=== PATIENT | male | born 1960 | race Caucasian/White ===

== ENCOUNTER 2019-10-24 17:55 | Emergency (ER) | payer OTHER ==
[~2019-10-24] VITALS: Ht 172.7 cm; Wt 115.4 kg
--- NOTE | 2019-10-24 18:26 | PHYS DOC ---
Past History Past Medical History: Other (liver CA) Smoking: Cigarettes General Adult EDM: Chief Complaint: GI PROBLEM HPI: HPI: 59M with liver CA (managed at [facility]), p/w 5 days of abdominal pain, dull, diffuse. No N/V/D. No prior abd surgeries. No other reported PMH. Patient an overall poor historian re: his medical history. Review of Systems: Review of Systems: Gen: No fever, chills. Eyes: No blurred vision, diplopia. ENT: No nasal congestion, sore throat. CV: No CP, cough. Resp. No SOB, cough. GI: No diarrhea, N/V. Reports abdominal pain. : No dysuria, hematuria. Neuro: No VILLAVICENCOI, dizziness, weakness. MSK: No myalgia, arthralgia, back pain. Skin: No acute rash or lesion. Heart Score: Risk Factors: Risk Factors: DM, Current or recent (<one month) smoker, HTN, HLP, family history of CAD, obesity. Risk Scores: Score 0 - 3: 2.5% MACE over next 6 weeks - Discharge Home Score 4 - 6: 20.3% MACE over next 6 weeks - Admit for Clinical Observation Score 7 - 10: 72.7% MACE over next 6 weeks - Early Invasive Strategies Current Medications: Current Meds: Current Medications Medications (Trade) Dose Ordered Sig/Venkatesh Start Time Stop Time Status Last Admin Dose Admin Morphine Sulfate (Morphine 4mg Syringe) 4 mg PRN Q15MIN PRN 10/24/19 18:30 10/25/19 18:29 Allergies: Allergies: Allergies Coded Allergies Type Severity Reaction Last Updated Verified aspirin Allergy Unknown 10/24/19 Yes Physical Exam: PE: Gen: NAD. Head: NC/AT. Eyes: Mild bilateral scleral icterus. No conjunctival injection. ENT: MMM. Posterior OP clear. Neck: Supple. NT. No JVD. CV: RRR. Peripheral pulses intact. Resp: Faint bibasilar rales. Abd: Soft. Mild to moderate distention. Minimal nonfocal tenderness without peritoneal signs. No flank percussion tenderness. MSK: No peripheral cyanosis. No edema. Neuro: Awake and alert. Skin. Warm. Dry. Psych: Appropriate mood & affect. EKG: EKG: EKG at 1847. NSR. HR 80. Nml intervals. No STEMI. Interp by me. Radiology/Procedures: Radiology/Procedures: PROCEDURE: CT ABD PELV W/ IV CONTRST ONLY CT abdomen and pelvis with contrast PQRS statement: CT scans at this facility use dose reduction including either automated exposure control, iterative reconstructions, and /or weight based radiation dosing via mA and kV modification when appropriate to reduce radiation dose to as low as reasonably achievable. Contrast: 75 mL Omnipaque 300 intravenous contrast. HISTORY: Abdominal pain, bloating, liver cancer, history of radiation therapy. Abdomen findings: Mild dependent right pleural effusion and dependent right lower lobe atelectasis. Liver cirrhosis. Numerous hypodense lesions of the liver, multifocal hepatocellular carcinoma is a possibility. Expansile portal vein thrombus at the left and main portal veins raising the possibility of tumor thrombus with possible enhancement within the thrombus. Distended gallbladder and wall calcifications diameter 5.5 cm. There is mild abdominal ascites. Prostatomegaly length of 15 cm. Kidneys, adrenals, pancreas unremarkable. Gastroesophageal varices. No bowel obstruction. Appendix is not visualized could be obscured by the ascites or surgically absent. 2 cm umbilical hernia containing fluid. Lumbar disc disease with spinal canal stenoses, L5 spondylolysis and grade 1 anterolisthesis with spinal canal and neural foraminal stenoses. Pelvis findings: Mild pelvic ascites. Bladder, prostate, rectum and bones are unremarkable. IMPRESSION: 1. Liver cirrhosis with multifocal hypodense lesions not typical of cysts, concerning for multifocal hepatocellular carcinoma. 2. Expansile nonocclusive portal vein thrombus with possible areas of enhancement suspicious for tumor thrombus. 3. Mild ascites. Mild right pleural effusion. 4. Portal hypertension with mild splenomegaly, and gastroesophageal varices. 5. Gallstones and distended gallbladder. 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 Electronically signed by: Jm Bowen MD (10/24/2019 7:38 PM) [facility] Course & Med Decision Making: Course & Med Decision Making Pertinent Labs and Imaging studies reviewed. (See chart for details) In summary, 59M with liver CA p/w abdominal pain. No other GI/ Sx. Benign exam, mild abd distension. Labs with transaminitis as expected, with bili 7. CTAP with known liver cirrhosis/CA, nonocclusive portal vein thrombus. Received morphine with efficacy. Spoke with [facility] ED re: prior records. The PVT is a new finding, with worsening of hyperbili (previously 3 in 08/2019). Call out to transfer center. No hepatology coverage here at [facility]. MELD score 23. Accepted for transfer to [facility] at [address] Costello. Remains stable for transfer. Dragon Disclaimer: Dragon Disclaimer: This electronic medical record was generated, in whole or in part, using a voice recognition dictation system. Departure Departure: Impression: Primary Impression: Liver cancer Additional Impressions: Hyperbilirubinemia Transaminitis Portal vein thrombosis Disposition: 05 TRANSFER OTHER ([facility] - Dr. Felice Costello) Condition: STABLE Referrals: PCP,JANELL (PCP) SWAPNA CLAUDIO DO October 24, 2019 18:26
[2019-10-24] MEDS ORDERED: IOHEXOL 300 MG/ML 75 ML VIAL. IV ONE (18:30)
[2019-10-24] MEDS: MORPHINE SULFATE 4 MG/ML DISP.SYRIN. IV/SQ PRN ×2 (18:41→23:06)
[2019-10-24 19:13] LABS: BASO % 1 % (0-3); EOS # 0.1 x10^3/uL (0.0-0.7); EOS % 1 % (0-3); HEMATOCRIT 41.3 % (39.0-53.0); HEMOGLOBIN 14.2 g/dL (13.0-17.5); LYMPH # 0.8 x10^3/uL (1.0-4.8); LYMPH % 10 % (24-48); MEAN CORPUSCULAR HEMOGLOBIN 34 pg (25-35); MEAN CORPUSCULAR HGB CONC 34 g/dL (31-37); MEAN CORPUSCULAR VOLUME 100 fL (79-100); MONO # 0.7 x10^3/uL (0.0-1.1); MONO % 9 % (0-9); NEUT # 6.3 x10^3uL (1.8-7.7); NEUT % 80 % (31-73); PLATELET COUNT 104 x10^3/uL (140-400); RED BLOOD COUNT 4.12 x10^6/uL (4.30-5.70); WHITE BLOOD COUNT 7.9 x10^3/uL (4.0-11.0)
[2019-10-24 19:17] LABS: CALCIUM 8.9 mg/dL (8.5-10.1); CREATININE 0.8 mg/dL (0.7-1.3); GFR 98.9
[2019-10-24 19:18] LABS: POTASSIUM 4.2 mmol/L (3.5-5.1)
[2019-10-24 19:23] LABS: ALBUMIN 1.8 g/dL (3.4-5.0); ALBUMIN/GLOBULIN RATIO 0.3 (1.0-1.7); TOTAL PROTEIN 8.1 g/dL (6.4-8.2)
--- NOTE | 2019-10-24 19:34 | RAD ---
AP chest x-ray HISTORY: Shortness of breath. FINDINGS: Heart size normal. Mediastinal silhouette is normal. No pneumothorax. Mild right pleural effusion along the lateral diaphragm. No pulmonary opacities. Bones are unremarkable. IMPRESSION: Mild right pleural effusion. Electronically signed by: Jm Bowen MD (10/24/2019 7:31 PM) [facility]
--- NOTE | 2019-10-24 19:41 | RAD ---
CT abdomen and pelvis with contrast PQRS statement: CT scans at this facility use dose reduction including either automated exposure control, iterative reconstructions, and /or weight based radiation dosing via mA and kV modification when appropriate to reduce radiation dose to as low as reasonably achievable. Contrast: 75 mL Omnipaque 300 intravenous contrast. HISTORY: Abdominal pain, bloating, liver cancer, history of radiation therapy. Abdomen findings: Mild dependent right pleural effusion and dependent right lower lobe atelectasis. Liver cirrhosis. Numerous hypodense lesions of the liver, multifocal hepatocellular carcinoma is a possibility. Expansile portal vein thrombus at the left and main portal veins raising the possibility of tumor thrombus with possible enhancement within the thrombus. Distended gallbladder and wall calcifications diameter 5.5 cm. There is mild abdominal ascites. Prostatomegaly length of 15 cm. Kidneys, adrenals, pancreas unremarkable. Gastroesophageal varices. No bowel obstruction. Appendix is not visualized could be obscured by the ascites or surgically absent. 2 cm umbilical hernia containing fluid. Lumbar disc disease with spinal canal stenoses, L5 spondylolysis and grade 1 anterolisthesis with spinal canal and neural foraminal stenoses. Pelvis findings: Mild pelvic ascites. Bladder, prostate, rectum and bones are unremarkable. IMPRESSION: 1. Liver cirrhosis with multifocal hypodense lesions not typical of cysts, concerning for multifocal hepatocellular carcinoma. 2. Expansile nonocclusive portal vein thrombus with possible areas of enhancement suspicious for tumor thrombus. 3. Mild ascites. Mild right pleural effusion. 4. Portal hypertension with mild splenomegaly, and gastroesophageal varices. 5. Gallstones and distended gallbladder. 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 Electronically signed by: Jm Bowen MD (10/24/2019 7:38 PM) [facility]
[2019-10-24 22:55] VITALS: BP 133/82
--- NOTE | 2019-10-25 03:55 | EKG ---
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
== END 2019-10-24 23:22 | disposition short-term general hospital (02) ==
LOC: ER 17:55
DX: C22.8 Malignant neoplasm of liver, primary, unspecified as to type (principal); E80.6 Other disorders of bilirubin metabolism; R74.0 Nonspecific elevation of levels of transaminase and lactic acid dehydrogenase [LDH]; I81 Portal vein thrombosis; F17.210 Nicotine dependence, cigarettes, uncomplicated; Z88.6 Allergy status to analgesic agent
CPT/HCPCS: 36415; 71045; 74177; 80053; 83690; 84484; 85025; 85610; 93005; 96374; 96376; 99285; J2270; Q9967